=== PATIENT | male | born 1955 | race Caucasian/White ===

== ENCOUNTER 2018-11-30 12:48 | Outpatient (CLI) | payer MEDICARE, BC | END 2018-11-30 23:59 | disposition home or self-care (01) | LOC: CFH 12:48 | DX: M51.26 Other intervertebral disc displacement, lumbar region (principal); M48.07 Spinal stenosis, lumbosacral region; M51.36 Other intervertebral disc degeneration, lumbar region; Z98.890 Other specified postprocedural states | CPT/HCPCS: 72148 ==

== ENCOUNTER 2018-12-17 07:02 | Outpatient (CLI) | payer MEDICARE, BC | END 2018-12-17 23:59 | disposition home or self-care (01) | LOC: CVU 07:02 | DX: I70.211 Atherosclerosis of native arteries of extremities with intermittent claudication, right leg (principal); J45.909 Unspecified asthma, uncomplicated; E78.5 Hyperlipidemia, unspecified | CPT/HCPCS: 93922 ==